=== PATIENT | female | born 1990 | race Two or more races ===

== ENCOUNTER 2018-04-11 08:12 | Emergency (ER) | payer OTHER ==
[~2018-04-11] VITALS: Ht 157.5 cm; Wt 75.3 kg
[2018-04-11 08:17] VITALS: Ht 157.5 cm; Wt 75.3 kg
[2018-04-11 08:41] LABS: BASOPHIL % 0.9 % (0-2); PLATELET COUNT 259 x10^3mcL (130-400); RED CELL DISTRIBUTION WIDTH 12.8 % (11.5-14.5)
[2018-04-11 09:00] LABS: CALCIUM 8.8 mg/dL (8.5-10.1); CARBON DIOXIDE 28.1 mmol/L (21-32); CHLORIDE SERUM 104 mmol/L (98-107); CREATININE SERUM 0.8 mg/dL (0.6-1.0); GFR1 > 60 mL/min; GLUCOSE SERUM 68 mg/dL (74-106); POTASSIUM SERUM 3.7 mmol/L (3.5-5.1); SODIUM SERUM 140 mmol/L (136-145)
[2018-04-11 09:01] LABS: LIPASE 135 IU/L (73-393)
[2018-04-11 09:59] VITALS: BP 113/65
== END 2018-04-11 09:59 | disposition home or self-care (01) ==
LOC: ED 08:12
PROVIDERS: Emergency Medicine
DX: R07.89 Other chest pain (principal)
CPT/HCPCS: 36415; 85378; Q0092